=== PATIENT | male | born 1975 | race Caucasian/White ===

== ENCOUNTER 2017-08-06 15:02 | Outpatient (CLI) | payer OTHER ==
[2017-08-06 18:05] LABS: BILIRUBIN,URINE NEGATIVE (NEGATIVE)
[2017-08-06 18:10] LABS: BASOPHILS % (AUTO) 0.7 %; EOSINOPHILS # (AUTO) 0.2 10^3/uL (0.0-0.7); EOSINOPHILS % (AUTO) 3.9 %; HCT - HEMATOCRIT 37.5 % (42.0-52.0); HGB - HEMOGLOBIN 12.6 g/dL (14.0-18.0); LYMPHOCYTES # (AUTO) 1.2 10^3/uL (1.5-3.5); LYMPHOCYTES % (AUTO) 18.1 %; MEAN CORPUSCULAR HGB CONC 33.6 g/dL (32.0-36.0); MEAN CORPUSCULAR VOLUME 89.3 fL (80.0-94.0); MEAN PLATELET VOLUME 8.3 fL (7.4-11.4); MONOCYTES # (AUTO) 0.4 10^3/uL (0.0-1.0); MONOCYTES % (AUTO) 5.8 %; NEUTROPHILS # (AUTO) 4.6 10^3/uL (1.5-6.6); NEUTROPHILS % (AUTO) 71.5 %; UNCORRECTED WHITE BLOOD COUNT 6.4 x10^3/uL; WHITE BLOOD COUNT 6.4 x10^3/uL (4.8-10.8)
[2017-08-06 18:28] LABS: WBC,URINE 0-3 /HPF (0-3)
[2017-08-06 19:06] LABS: ALBUMIN/GLOBULIN RATIO 1.6 (1.0-2.2); BILIRUBIN,TOTAL 0.7 mg/dL (0.2-1.0); BUN - BLOOD UREA NITROGEN 55 mg/dL (6-20); CALCIUM 8.7 mg/dL (8.5-10.3); CARBON DIOXIDE - CO2 26 mmol/L (21-32); CHLORIDE 105 mmol/L (101-111); CHOL/HDL RATIO 4.4 (<5.0); CHOLESTEROL 222 mg/dL; GFR - MDRD 13 (>89); GLUCOSE 95 mg/dL (70-100); HDL CHOLESTEROL 51 mg/dL; LDL/HDL RATIO 2.9 (<3.6); POTASSIUM 4.2 mmol/L (3.5-5.0); SODIUM 138 mmol/L (135-145); TOTAL PROTEIN 6.4 g/dL (6.7-8.2); TRIGLYCERIDES 115 mg/dL; VLDL CHOLESTEROL 23 mg/dL
[2017-08-06 20:34] LABS: HEMOGLOBIN A1C 0.4 g/dL
== END 2017-08-06 15:03 | disposition home or self-care (01) ==
LOC: LAB.F 15:02
PROVIDERS: ATTEND Internal Medicine
DX: I10 Essential (primary) hypertension (principal)
CPT/HCPCS: 36415; 80053; 80061; 81001; 83036; 84443; 85025

== ENCOUNTER 2017-08-07 08:52 | Emergency (ER) | payer OTHER ==
[2017-08-07] MEDS ORDERED: cloNIDine 0.1 MG TABLET PO STA (09:49)
[2017-08-07] MEDS ORDERED: cloNIDine 0.1 MG TABLET ONE (10:00)
[2017-08-07 10:07] LABS: BASOPHILS % (AUTO) 0.6 %; EOSINOPHILS # (AUTO) 0.1 10^3/uL (0.0-0.7); EOSINOPHILS % (AUTO) 1.1 %; HGB - HEMOGLOBIN 12.7 g/dL (14.0-18.0); LYMPHOCYTES # (AUTO) 0.6 10^3/uL (1.5-3.5); MEAN CORPUSCULAR HEMOGLOBIN 30.3 pg (27.0-31.0); MEAN CORPUSCULAR HGB CONC 34.4 g/dL (32.0-36.0); MEAN PLATELET VOLUME 7.3 fL (7.4-11.4); MONOCYTES # (AUTO) 0.3 10^3/uL (0.0-1.0); MONOCYTES % (AUTO) 3.9 %; NEUTROPHILS # (AUTO) 6.7 10^3/uL (1.5-6.6); NEUTROPHILS % (AUTO) 86.4 %; RED CELL DISTRIBUTION WIDTH 13.1 % (12.0-15.0); UNCORRECTED WHITE BLOOD COUNT 7.7 x10^3/uL; WHITE BLOOD COUNT 7.7 x10^3/uL (4.8-10.8)
[2017-08-07 10:23] LABS: ALBUMIN/GLOBULIN RATIO 1.4 (1.0-2.2); BILIRUBIN,TOTAL 0.7 mg/dL (0.2-1.0); CREATININE 4.6 mg/dL (0.6-1.2); POTASSIUM 4.2 mmol/L (3.5-5.0); TOTAL PROTEIN 6.5 g/dL (6.7-8.2)
[2017-08-07 10:34] LABS: BILIRUBIN,URINE NEGATIVE (NEGATIVE); PH,URINE 6.5 PH (5.0-7.5); UA w/ MICROSCOPIC CHARGE YES
[2017-08-07 10:50] LABS: UR CULTURE IF IND NOT INDICATED; WBC,URINE 0-3 /HPF (0-3)
--- NOTE | 2017-08-07 11:17 | ED Physician Documentation ---
History of Present Illness - Stated complaint Stated Complaint: HIGH BP - Chief complaint Chief Complaint: General - History obtained from History obtained from: Patient - History of Present Illness Timing: How many weeks ago, Other (months) - Additonal information Additional information: 42-year-old male has had elevated blood pressure and symptoms including headache and facial swelling leg swelling for the past several months. He became aware of his blood pressure being elevated when he was denied for life insurance. Yesterday he finally went into see a doctor about his blood pressure and he has been running diastolics above 110-120. He was found to have renal failure and he is sent here today for hypertensive urgency. He relates that he has had headaches been bad enough to cause vomiting periodically. He has been monitoring his blood pressures and brings in paperwork with multiple readings all very high. He states that when he exercises he does have some lower readings and he exercises regularly. He also indicates that he is good about his diet but does continue to use salt Review of Systems Constitutional: reports: Chills. denies: Fever Eyes: denies: Decreased vision Ears: denies: Ear pain Nose: denies: Congestion Throat: denies: Sore throat Cardiac: denies: Chest pain / pressure, Palpitations Respiratory: denies: Dyspnea, Cough GI: reports: Nausea, Vomiting. denies: Abdominal Pain : denies: Dysuria, Frequency Skin: denies: Rash Musculoskeletal: reports: Neck pain. denies: Back pain, Extremity pain Neurologic: reports: Headache. denies: Generalized weakness, Focal weakness, Numbness, Head injury, LOC PD PAST MEDICAL HISTORY - Past Medical History Past Medical History: Yes Cardiovascular: Hypertension - Past Surgical History Past Surgical History: No - Present Medications Home Medications: Ambulatory Orders Medication Instructions Recorded Confirmed amLODIPine [Norvasc] 5 mg DAILY 08/07/17 08/07/17 - Allergies Allergies/Adverse Reactions: Allergies Allergy/AdvReac Type Severity Reaction Status Date / Time Penicillins Allergy Unknown Verified 08/07/17 09:05 - Social History Does the pt smoke?: No Smoking Status: Never smoker Does the pt have substance abuse?: No PD ED PE NORMAL - Vitals Vital signs reviewed: Yes (Hypertensive) - General General: Alert and oriented X 3, No acute distress, Well developed/nourished - HEENT HEENT: Atraumatic, PERRL, EOMI - Neck Neck: Supple, no meningeal sign, No bony TTP - Cardiac Cardiac: RRR, No murmur - Respiratory Respiratory: No respiratory distress, Clear bilaterally - Abdomen Abdomen: Soft, Non tender - Back Back: No CVA TTP, No spinal TTP - Derm Derm: Normal color, Warm and dry, No rash - Extremities Extremities: No deformity, Other (There is trace edema bilaterally to the lower extremities.) - Neuro Neuro: Alert and oriented X 3, inspecting supervisor 2-12 intact, No motor deficit, No sensory deficit, Normal speech - Psych Psych: Normal mood, Normal affect Results - Vitals Vitals: Vital Signs - 24 hr 08/07/17 08/07/17 08/07/17 08:55 09:41 10:19 Temperature 36.5 C 36.8 C Heart Rate 67 70 Respiratory 16 11 L Rate Blood Pressure 190/111 H 179/113 H 234/115 H O2 Saturation 100 100 08/07/17 08/07/17 08/07/17 10:20 10:45 11:00 Temperature 36.5 C Heart Rate 68 69 73 Respiratory 15 16 16 Rate Blood Pressure 203/119 H 197/127 H 201/117 H O2 Saturation 100 08/07/17 08/07/17 08/07/17 11:15 11:31 12:42 Temperature 36.9 C 36.5 C Heart Rate 70 73 66 Respiratory 18 14 16 Rate Blood Pressure 187/114 H 187/114 H 177/117 H O2 Saturation 100 100 08/07/17 08/07/17 08/07/17 12:49 13:06 13:21 Temperature Heart Rate 65 59 L 65 Respiratory 16 16 16 Rate Blood Pressure 172/109 H 169/109 H 170/107 H O2 Saturation 100 100 99 08/07/17 08/07/17 08/07/17 13:34 13:50 14:15 Temperature Heart Rate 65 66 65 Respiratory 16 16 16 Rate Blood Pressure 161/101 H 170/110 H 166/102 H O2 Saturation 100 99 100 08/07/17 08/07/17 08/07/17 14:43 14:58 15:12 Temperature Heart Rate 64 64 61 Respiratory 16 18 Rate Blood Pressure 167/104 H 166/105 H 163/109 H O2 Saturation 100 08/07/17 15:21 Temperature Heart Rate 62 Respiratory 16 Rate Blood Pressure 162/104 H O2 Saturation Oxygen O2 Source Room air - EKG (time done) 1001 Intervals: RBBB (incomplete) Compare to prior EKG: Old EKG unavailable Computer interpretation: Agree with computer - Labs Labs: Laboratory Tests 08/07/17 08/07/17 08/07/17 10:00 10:00 10:00 WBC 7.7 RBC 4.20 L Hgb 12.7 L Hct 37.0 L MCV 88.0 MCH 30.3 MCHC 34.4 RDW 13.1 Plt Count 194 MPV 7.3 L Neut # 6.7 H Lymph # 0.6 L Evans # 0.3 Eos # 0.1 Baso # 0.0 Absolute Nucleated RBC 0.00 Nucleated RBC % 0.0 Sodium 140 Potassium 4.2 Chloride 103 Carbon Dioxide 23 Anion Gap 14.0 H BUN 57 H Creatinine 4.6 H Estimated GFR (MDRD) 14 L Glucose 126 H Calcium 9.0 Total Bilirubin 0.7 AST 19 ALT 21 Alkaline Phosphatase 59 Troponin I < 0.04 Total Protein 6.5 L Albumin 3.8 Globulin 2.7 Albumin/Globulin Ratio 1.4 Lipase 28 TSH Urine Color Urine Clarity Urine pH Ur Specific Franklin Urine Protein Urine Glucose (UA) Urine Ketones Urine Occult Blood Urine Nitrite Urine Bilirubin Urine Urobilinogen Ur Leukocyte Esterase Urine RBC Urine WBC Ur Squamous Epith Cells Urine Bacteria Ur Microscopic Review Urine Culture Comments 08/07/17 08/07/17 10:00 10:14 WBC RBC Hgb Hct MCV MCH MCHC RDW Plt Count MPV Neut # Lymph # Evans # Eos # Baso # Absolute Nucleated RBC Nucleated RBC % Sodium Potassium Chloride Carbon Dioxide Anion Gap BUN Creatinine Estimated GFR (MDRD) Glucose Calcium Total Bilirubin AST ALT Alkaline Phosphatase Troponin I Total Protein Albumin Globulin Albumin/Globulin Ratio Lipase TSH 1.85 Urine Color YELLOW Urine Clarity CLEAR Urine pH 6.5 Ur Specific Franklin 1.020 Urine Protein 100 H Urine Glucose (UA) NEGATIVE Urine Ketones NEGATIVE Urine Occult Blood MODERATE H Urine Nitrite NEGATIVE Urine Bilirubin NEGATIVE Urine Urobilinogen 0.2 (NORMAL) Ur Leukocyte Esterase NEGATIVE Urine RBC 11-25 H Urine WBC 0-3 Ur Squamous Epith Cells NONE SEEN Urine Bacteria Rare Ur Microscopic Review INDICATED Urine Culture Comments NOT INDICATED - Rads (name of study) Renal artery ultrasound Radiology: Prelim report reviewed (Impression: Normal renal arteries. No hydro- .), EMP read indepedently, See rad report Procedures - IVC sono (time) 1000 Bedside IVC sono: IVC measures (cm) (1.6), Euvolemia PD MEDICAL DECISION MAKING - ED course Complexity details: reviewed results, re-evaluated patient, considered differential, d/w patient ED course: 42-year-old male with untreated hypertension has symptoms and endorgan damage. He does have evidence now of renal failure and he has a normal renal artery ultrasound.Here in the emergency department he presents markedly hypertensive with a headache leg swelling and renal failure. He brings in paperwork showingSurveillance of elevated blood pressure readings and most of the diastolic readings are over 110. He does have diastolics over 120 and here in the emergency department he is markedly hypertensive. He is administered clonidine orally and subsequently given labetalol inBolus doses with improvement in his blood pressure. Dr. STEPHANIE Titus is consulted in the case and recommends the patient follow up with him in his clinic here at the hospital this Sunday. He recommends continued treatment of his hypertension. Departure - Departure Disposition: Home, Self Care Clinical Impression: Hypertensive urgency Condition: Stable Instructions: ED Hypertension Conf Out Of Control Follow-Up: Codey Bernal MD [Primary Care Provider] - Jhonatan Presley MD [Provider Admit Priv/Credential] - Comments: Increase your dose of amlodipine to 10mg daily, start the Carvedilol 12.5mg twice per day as discussed with Dr. Angel, and follow up with Dr. Presley this Sunday here at the hospital. Call office and ask them to put the referral for nephrology in for "Dr. STEPHANIE Presley"
[2017-08-07] MEDS ORDERED: LABETALOL 20 MG/4 ML SYRINGE IVP STA ×4 (11:34→14:03)
[2017-08-07] MEDS ORDERED: LABETALOL 20 MG/4 ML SYRINGE IVP ONE ×2 (11:47→13:29)
[2017-08-07] MEDS ORDERED: SODIUM CHLORIDE FLUSH 0.9% 10 ML SYRINGE IVP ONE (14:37)
[2017-08-07] MEDS ORDERED: LABETALOL 5 MG/1 ML 20 ML MDV ONE (14:38)
[2017-08-07] MEDS ORDERED: ACETAMINOPHEN 500 MG TABLET PO STA (15:21)
[2017-08-07] MEDS ORDERED: ACETAMINOPHEN 500 MG TABLET PO ONE (15:27)
[2017-08-07 15:52] VITALS: BP 164/100
--- NOTE | 2017-08-07 16:00 | Ultrasound Report ---
RENAL ARTERY DUPLEX: 08/07/2017 CLINICAL INDICATION: Extreme hypertension. TECHNIQUE: Real-time sonographic vascular imaging was performed by the turret press operator through the renal arteries utilizing both color-flow and Doppler flow analysis. Multiple promotional representative static images were saved for review. RT KIDNEY LT KIDNEY Size: 11.2 x 5.6 x 5.5 cm Size: 11.8 x 5.7 x 5.6 cm SEGMENTAL ARTERY SEGMENTAL ARTERY PSV RI PSV RI Upper Pole 56 0.6 Upper Pole 57 0.63 Mid Pole 63 0.73 Mid Pole 77 0.7 Lower Pole 30 0.63 Lower Pole 56 0.7 RIGHT RENAL ARTERY LEFT RENAL ARTERY PSV RA/AO PSV RA/AO Origin: 125 0.9 Origin: 90 0.7 Proximal: 80 0.6 Proximal: 90 0.7 Mid: 68 0.5 Mid: 132 1 Distal: 83 0.6 Distal: 78 0.6 PROX AORTA PSV: 137 cm/sec RRV patent Yes LRV patent Yes CRITERIA FOR CLASSIFICATION OF RENAL ARTERY DISEASE BY DUPLEX SCANNING RENAL ARTERY DIAMETER REDUCTION RENAL ARTERY PSV RAR Normal < 180 cm/sec <3.5 < 60 % >180 cm/sec <3.5 < 60 % >180 cm/sec <3.5 Occlusion (100)% No signal No signal FINDINGS Right: Right kidney measures 11.2 x 5.6 x 5.5 cm. Renal cortical echotexture is increased, suggestive of medical renal disease. The right renal artery is well visualized around its length. Velocities and ratios are normal. Resistive indices are normal. No hydronephrosis is present. Left: The left kidney measures 11.8 x 5.7 x 5.6 cm. Renal cortical echotexture is increased, suggestive of medical renal disease. The left renal artery is well seen throughout its length. Velocities and ratios are normal. Resistive indices are normal. No hydronephrosis is present. IMPRESSION: NORMAL RENAL ARTERY DUPLEX. NO EVIDENCE OF A HEMODYNAMICALLY SIGNIFICANT RENAL ARTERY STENOSIS. MTDD
== END 2017-08-07 15:59 | disposition home or self-care (01) ==
LOC: ED 08:52
DX: I16.0 Hypertensive urgency (principal); I45.2 Bifascicular block; R94.31 Abnormal electrocardiogram [ECG] [EKG]
CPT/HCPCS: 36415; 80053; 81001; 83690; 84443; 84484; 85025; 93005; 93976; 96374; 96376; 99285; A9270; 81003; 87086

== ENCOUNTER 2017-08-13 08:54 | Outpatient (CLI) | payer OTHER ==
[2017-08-13 13:42] LABS: INR 0.9 (0.8-1.2); PT - PROTHROMBIN TIME 10.1 secs (9.9-12.6)
[2017-08-13 14:03] LABS: CALCIUM 8.9 mg/dL (8.5-10.3); CREATININE 5.5 mg/dL (0.6-1.2); PHOSPHORUS 5.3 mg/dL (2.5-4.6); POTASSIUM 4.5 mmol/L (3.5-5.0); URIC ACID 7.3 mg/dL (2.6-7.2)
[2017-08-15 10:51] LABS: GLOM BASEMENT MEMBRANE AB IGG <1.0 AI (<1.0)
[2017-08-15 11:56] LABS: COMPLEMENT COMPONENT C3C 104 mg/dL (90-180); COMPLEMENT COMPONENT C4C 28 mg/dL (16-47)
[2017-08-15 13:21] LABS: ANA SCREEN NEGATIVE (NEGATIVE)
== END 2017-08-13 08:55 | disposition home or self-care (01) ==
LOC: LAB.F 08:54
PROVIDERS: ATTEND Internal Medicine Nephrology
DX: L93.2 Other local lupus erythematosus (principal); M31.30 Wegener's granulomatosis without renal involvement; N00.9 Acute nephritic syndrome with unspecified morphologic changes; N05.9 Unspecified nephritic syndrome with unspecified morphologic changes; D89.89 Other specified disorders involving the immune mechanism, not elsewhere classified; M10.00 Idiopathic gout, unspecified site; E83.30 Disorder of phosphorus metabolism, unspecified; D70.9 Neutropenia, unspecified; D68.9 Coagulation defect, unspecified; N25.81 Secondary hyperparathyroidism of renal origin
CPT/HCPCS: 36415; 80048; 83520; 83970; 84100; 84550; 85610; 86021; 86038; 86160

== ENCOUNTER 2017-08-14 12:59 | Outpatient (CLI) | payer OTHER | END 2017-08-14 13:00 | disposition home or self-care (01) | LOC: LAB.F 12:59 | PROVIDERS: ATTEND Internal Medicine Nephrology | DX: L93.2 Other local lupus erythematosus (principal); M31.30 Wegener's granulomatosis without renal involvement; N00.9 Acute nephritic syndrome with unspecified morphologic changes; D89.89 Other specified disorders involving the immune mechanism, not elsewhere classified; M10.00 Idiopathic gout, unspecified site; E83.30 Disorder of phosphorus metabolism, unspecified; N25.81 Secondary hyperparathyroidism of renal origin; D68.9 Coagulation defect, unspecified; D70.9 Neutropenia, unspecified | CPT/HCPCS: 36415; 86900; 86901 ==

== ENCOUNTER 2017-08-21 10:27 | Outpatient (CLI) | payer OTHER ==
[2017-08-21 18:29] LABS: BILIRUBIN,URINE NEGATIVE (NEGATIVE)
[2017-08-21 18:40] LABS: WBC,URINE 0-3 /HPF (0-3)
[2017-08-21 19:11] LABS: CREATININE 5.3 mg/dL (0.6-1.2); POTASSIUM 4.1 mmol/L (3.5-5.0)
== END 2017-08-21 10:28 | disposition home or self-care (01) ==
LOC: LAB.F 10:27
PROVIDERS: ATTEND Internal Medicine
DX: I10 Essential (primary) hypertension (principal); N17.9 Acute kidney failure, unspecified
CPT/HCPCS: 36415; 80048; 81001

== ENCOUNTER 2017-09-20 11:00 | Outpatient (CLI) | payer OTHER | END 2017-09-20 11:01 | disposition home or self-care (01) | LOC: NS 11:00 | PROVIDERS: ATTEND Internal Medicine Nephrology | DX: Z71.3 Dietary counseling and surveillance (principal); N17.9 Acute kidney failure, unspecified; Z68.26 Body mass index [BMI] 26.0-26.9, adult | CPT/HCPCS: 97803 ==

== ENCOUNTER 2017-10-13 14:42 | Emergency (ER) | payer OTHER ==
--- NOTE | 2017-10-13 16:16 | ED Physician Documentation ---
History of Present Illness - Stated complaint Stated Complaint: NECK PX - Chief complaint Chief Complaint: Heent - History obtained from History obtained from: Patient, Family - History of Present Illness Timing: Today Pain level max: 2 Pain level now: 2 - Additonal information Additional information: Patient is a 42-year-old gentleman with a history of hypertension and chronic kidney disease secondary to IgA nephropathy. He complains of right-sided neck pain a little bit yesterday and worse today. Feels like it is over his carotid artery. No visual changes. No facial drooping. Pain is worse when he tilts his head to the left, but not with rotational movement. Denies any trauma. Pain is better when sitting straight ahead. Review of Systems Ten Systems: 10 systems reviewed and negative Constitutional: denies: Fever, Chills Ears: denies: Ear pain Nose: denies: Rhinorrhea / runny nose, Congestion Throat: denies: Sore throat Cardiac: denies: Chest pain / pressure Respiratory: denies: Cough GI: denies: Nausea, Vomiting, Diarrhea Skin: denies: Rash Musculoskeletal: denies: Back pain Neurologic: denies: Focal weakness, Numbness, Confused, Headache PD PAST MEDICAL HISTORY - Past Medical History Cardiovascular: Hypertension : Renal insuffiency - Past Surgical History Past Surgical History: No - Present Medications Home Medications: Ambulatory Orders Medication Instructions Recorded Confirmed amLODIPine [Norvasc] 5 mg ORAL DAILY 08/07/17 10/13/17 Carvedilol 12.5 mg PO DAILY 10/13/17 10/13/17 Doxazosin [Cardura] 4 mg PO DAILY 10/13/17 10/13/17 Torsemide 20 mg PO DAILY 10/13/17 10/13/17 amLODIPine [Norvasc] 5 mg PO ONCE 10/13/17 10/13/17 hydrALAZINE [Apresoline] 25 mg PO QD 10/13/17 10/13/17 - Allergies Allergies/Adverse Reactions: Allergies Allergy/AdvReac Type Severity Reaction Status Date / Time Penicillins Allergy Unknown Verified 10/13/17 14:58 - Social History Does the pt smoke?: No Smoking Status: Never smoker Does the pt drink ETOH?: Yes Does the pt have substance abuse?: No - Immunizations Immunizations are current?: No - POLST Patient has POLST: No PD ED PE NORMAL - Vitals Vital signs reviewed: Yes - General General: Alert and oriented X 3, No acute distress - HEENT HEENT: PERRL, EOMI, Ears normal, Moist mucous membranes, Pharynx benign - Neck Neck: Supple, no meningeal sign, No bony TTP, No adenopathy, Thyroid normal, No JVD, No bruit, Other (mild point TTP over the R anterior cervical chain lymphnodes. no appreciable swelling. ) - Cardiac Cardiac: RRR, Strong equal pulses - Respiratory Respiratory: No respiratory distress, Clear bilaterally - Derm Derm: Warm and dry - Neuro Neuro: Alert and oriented X 3, equipment service technician 2-12 intact, No motor deficit, No sensory deficit Eye Opening: Spontaneous Motor: Obeys Commands Verbal: Oriented GCS Score: 15 - Psych Psych: Normal mood, Normal affect Results - Vitals Vitals: Vital Signs - 24 hr 10/13/17 10/13/17 14:53 17:20 Temperature 36.7 C 36.3 C L Heart Rate 55 L 52 L Respiratory 16 18 Rate Blood Pressure 121/76 139/94 H O2 Saturation 100 98 Oxygen O2 Source Room air - Labs Labs: Laboratory Tests 10/13/17 10/13/17 10/13/17 16:23 16:23 16:23 WBC 5.9 RBC 3.54 L Hgb 10.9 L Hct 31.5 L MCV 89.0 MCH 30.7 MCHC 34.5 RDW 12.6 Plt Count 223 MPV 7.4 Neut # 4.0 Lymph # 1.2 L [place] # 0.5 Eos # 0.2 Baso # 0.0 Absolute Nucleated RBC 0.00 Nucleated RBC % 0.0 ESR 28 H Sodium 136 Potassium 3.9 Chloride 100 L Carbon Dioxide 28 Anion Gap 8.0 BUN 43 H Creatinine 4.7 H Estimated GFR (MDRD) 14 L Glucose 109 H Calcium 9.0 C-Reactive Protein < 1.0 - Rads (name of study) carotid duplex US Radiology: Prelim report reviewed, EMP read contemporaneously, See rad report ( normal) PD MEDICAL DECISION MAKING - ED course Complexity details: reviewed results, re-evaluated patient, considered differential (No evidence of dissection, aneurysm, vasculitis), d/w patient ED course: Patient is a 42-year-old male who presents to the emergency department with right-sided neck pain. He is point tender. Possibly early lymphadenitis? No overlying skin changes. Normal duplex ultrasound. CRP is negative. He is well -appearing, nontoxic. No bruit. Normal cranial nerve exam. We will continue supportive care and follow-up with his doctor for further evaluation and care. Patient and family counseled regarding signs and symptoms for which I believe and urgent re-evaluation would be necessary. Patient with good understanding of and agreement to plan and is comfortable going home at this time This document was made in part using voice recognition software. While efforts are made to proofread this document, sound alike and grammatical errors may occur. Departure - Departure Disposition: 01 Home, Self Care Clinical Impression: Neck pain Condition: Good Instructions: ED Neck Pain No Trauma Follow-Up: Jhonatan Presley MD [Provider Admit Priv/Credential] - Within 1 week Comments: Return if you worsen. the cause of your symptoms is unclear today. Your ultrasound is normal today. Discharge Date/Time: 10/13/17 17:58
[2017-10-13 16:34] LABS: BASOPHILS % (AUTO) 0.8 %; EOSINOPHILS # (AUTO) 0.2 10^3/uL (0.0-0.7); HCT - HEMATOCRIT 31.5 % (42.0-52.0); HGB - HEMOGLOBIN 10.9 g/dL (14.0-18.0); LYMPHOCYTES # (AUTO) 1.2 10^3/uL (1.5-3.5); MEAN CORPUSCULAR HEMOGLOBIN 30.7 pg (27.0-31.0); MEAN CORPUSCULAR HGB CONC 34.5 g/dL (32.0-36.0); MEAN PLATELET VOLUME 7.4 fL (7.4-11.4); MONOCYTES # (AUTO) 0.5 10^3/uL (0.0-1.0); MONOCYTES % (AUTO) 8.6 %; NEUTROPHILS % (AUTO) 67.6 %; RED BLOOD COUNT 3.54 10^6/uL (4.70-6.10); RED CELL DISTRIBUTION WIDTH 12.6 % (12.0-15.0); UNCORRECTED WHITE BLOOD COUNT 5.9 x10^3/uL; WHITE BLOOD COUNT 5.9 x10^3/uL (4.8-10.8)
[2017-10-13 16:50] LABS: BUN - BLOOD UREA NITROGEN 43 mg/dL (6-20); CARBON DIOXIDE - CO2 28 mmol/L (21-32); CHLORIDE 100 mmol/L (101-111); CREATININE 4.7 mg/dL (0.6-1.2); GFR - MDRD 14 (>89); GLUCOSE 109 mg/dL (70-100); POTASSIUM 3.9 mmol/L (3.5-5.0); SODIUM 136 mmol/L (135-145)
[2017-10-13 17:24] VITALS: BP 139/94
--- NOTE | 2017-10-13 17:26 | Ultrasound Preliminary Report ---
Exam: US CAROTID DOPPLER COMPLETE IMPRESSION: 1. Normal bilateral internal carotid artery Doppler ultrasound. No stenosis identified. 2. Antegrade flow seen in the bilateral vertebral arteries. Validated velocity measurements with angiographic measurements and velocity criteria are extrapolated from diameter data as defined by the Society of Radiologists in Ultrasound Consensus Conference Radi ology 2003; 229;340-346. [facility] SITE ID: [id number]
--- NOTE | 2017-10-13 17:40 | Ultrasound Report ---
EXAM: CAROTID DOPPLER ULTRASOUND EXAM DATE: 10/13/2017 05:09 PM. CLINICAL HISTORY: Right neck pain. COMPARISON: None. TECHNIQUE: Real-time sonographic vascular imaging was performed by the business planning analyst through the caroti d arterial system with a linear transducer utilizing color-flow, Doppler flow and spectral analysis. Multiple care support representative static images were saved for review. FINDINGS: RIGHT: RCCA Prox: PSV 124 cm/sec. RCCA Dist: PSV 100 cm/sec, EDV 30 cm/sec. RECA: PSV 79 cm/sec. R Bulb: PSV 84 cm/sec, EDV 31 cm/sec, ICA/CCA ratio 0.84. JOSHUA Prox: PSV 72 cm/sec, EDV 32 cm/sec, ICA/CCA ratio 0.72. JOSHUA Mid: PSV 66 cm/sec, EDV 36 cm/sec, ICA/CCA ratio 0.66. JOSHUA Dist: PSV 97 cm/sec, EDV 40 cm/sec, ICA/CCA ratio 0.97. RVA: PSV 58 cm/sec. LEFT: LCCA Prox: PSV 116 cm/sec. LCCA Dist: PSV 97 cm/sec, EDV 39 cm/sec. LECA: PSV 78 cm/sec. L Bulb: PSV 58 cm/sec, EDV 23 cm/sec, ICA/CCA ratio 0.60. LICA Prox: PSV 96 cm/sec, EDV 35 cm/sec, ICA/CCA ratio 0.99. LICA Mid: PSV 66 cm/sec, EDV 29 cm/sec, ICA/CCA ratio 0.68., LICA Dist: PSV 67 cm/sec, EDV 31 cm/sec, ICA/CCA ratio 0.69. LVA: PSV 48 cm/sec. Other: None. IMPRESSION: 1. Normal bilateral internal carotid artery Doppler ultrasound. No stenosis identified. 2. Antegrade flow seen in the bilateral vertebral arteries. Validated velocity measurements with angiographic measurements and velocity criteria are extrapolated from diameter data as defined by the Society of Radiologists in Ultrasound Consensus Conference Radi ology 2003; 229;340-346. [facility] Referring Provider Line: [phone] SITE ID: [id number]
== END 2017-10-13 17:58 | disposition home or self-care (01) ==
LOC: ED 14:42
DX: M54.2 Cervicalgia (principal); I12.9 Hypertensive chronic kidney disease with stage 1 through stage 4 chronic kidney disease, or unspecified chronic kidney disease; N18.9 Chronic kidney disease, unspecified
CPT/HCPCS: 36415; 80048; 85025; 85651; 86140; 93880; 99283

== ENCOUNTER 2017-12-17 09:13 | Outpatient (CLI) | payer OTHER ==
[2017-12-17 18:06] LABS: EOSINOPHILS # (AUTO) 0.1 10^3/uL (0.0-0.7); EOSINOPHILS % (AUTO) 2.6 %; HGB - HEMOGLOBIN 11.6 g/dL (14.0-18.0); LYMPHOCYTES % (AUTO) 21.6 %; MEAN CORPUSCULAR HGB CONC 33.6 g/dL (32.0-36.0); MEAN CORPUSCULAR VOLUME 89.5 fL (80.0-94.0); MEAN PLATELET VOLUME 8.1 fL (7.4-11.4); MONOCYTES # (AUTO) 0.4 10^3/uL (0.0-1.0); MONOCYTES % (AUTO) 8.8 %; PLT - PLATELET COUNT 230 10^3/uL (130-450); RED BLOOD COUNT 3.85 10^6/uL (4.70-6.10); RED CELL DISTRIBUTION WIDTH 12.3 % (12.0-15.0); WHITE BLOOD COUNT 4.5 x10^3/uL (4.8-10.8)
[2017-12-17 18:19] LABS: CREATININE,URINE 53.3 mg/dL; PROTEIN/CREATININE RATIO,URINE 0.4 (<=0.2)
[2017-12-17 18:20] LABS: CALCIUM 8.8 mg/dL (8.5-10.3)
== END 2017-12-17 09:14 | disposition home or self-care (01) ==
LOC: LAB.F 09:13
PROVIDERS: ATTEND Internal Medicine Nephrology
DX: N05.9 Unspecified nephritic syndrome with unspecified morphologic changes (principal); D70.9 Neutropenia, unspecified; D63.1 Anemia in chronic kidney disease; R80.9 Proteinuria, unspecified
CPT/HCPCS: 36415; 80048; 82570; 84156; 85025

== ENCOUNTER 2017-12-25 13:00 | Outpatient (CLI) | payer OTHER | END 2017-12-25 13:01 | disposition home or self-care (01) | LOC: SC 13:00 | PROVIDERS: ATTEND Internal Medicine Pulmonary Disease | DX: G47.10 Hypersomnia, unspecified (principal); G47.8 Other sleep disorders; R06.83 Snoring | CPT/HCPCS: 99203; 99212 ==

== ENCOUNTER 2018-02-06 22:11 | Outpatient (CLI) | payer OTHER | END 2018-02-06 22:12 | disposition home or self-care (01) | LOC: SC 22:11 | PROVIDERS: ATTEND Internal Medicine Pulmonary Disease | DX: G47.61 Periodic limb movement disorder (principal) | CPT/HCPCS: 95810 ==

== ENCOUNTER 2018-02-18 13:04 | Outpatient (CLI) | payer OTHER ==
[2018-02-18 19:08] LABS: CALCIUM 8.8 mg/dL (8.5-10.3); CREATININE 4.8 mg/dL (0.6-1.2)
== END 2018-02-18 13:05 | disposition home or self-care (01) ==
LOC: LAB.F 13:04
PROVIDERS: ATTEND Internal Medicine Nephrology
DX: N05.9 Unspecified nephritic syndrome with unspecified morphologic changes (principal)
CPT/HCPCS: 36415; 80048

== ENCOUNTER 2018-03-04 14:08 | Outpatient (CLI) | payer OTHER | END 2018-03-04 14:09 | disposition home or self-care (01) | LOC: SC 14:08 | PROVIDERS: ATTEND Internal Medicine Pulmonary Disease | DX: G47.61 Periodic limb movement disorder (principal) | CPT/HCPCS: 99212 ==

== ENCOUNTER 2018-04-04 12:11 | Outpatient (CLI) | payer OTHER ==
[2018-04-04 17:46] LABS: HGB - HEMOGLOBIN 11.6 g/dL (14.0-18.0); MEAN CORPUSCULAR HEMOGLOBIN 29.7 pg (27.0-31.0); MEAN CORPUSCULAR HGB CONC 33.5 g/dL (32.0-36.0); MEAN CORPUSCULAR VOLUME 88.6 fL (80.0-94.0); RED BLOOD COUNT 3.9 10^6/uL (4.70-6.10); WHITE BLOOD COUNT 5.2 x10^3/uL (4.8-10.8)
== END 2018-04-04 12:12 | disposition home or self-care (01) ==
LOC: LAB.F 12:11
PROVIDERS: ATTEND Internal Medicine Nephrology
DX: D70.9 Neutropenia, unspecified (principal); D63.1 Anemia in chronic kidney disease
CPT/HCPCS: 36415; 85027

== ENCOUNTER 2018-05-15 13:13 | Outpatient (CLI) | payer SELFPAY | END 2018-05-15 13:14 | disposition home or self-care (01) | LOC: LAB 13:13 | DX: Z01.89 Encounter for other specified special examinations (principal) | CPT/HCPCS: 36415 ==

== ENCOUNTER 2018-08-01 08:02 | Outpatient (CLI) | payer OTHER ==
[2018-08-01 17:45] LABS: BASOPHILS % (AUTO) 0.5 %; EOSINOPHILS # (AUTO) 0.1 10^3/uL (0.0-0.7); EOSINOPHILS % (AUTO) 1.1 %; HGB - HEMOGLOBIN 13.5 g/dL (14.0-18.0); LYMPHOCYTES # (AUTO) 0.3 10^3/uL (1.5-3.5); LYMPHOCYTES % (AUTO) 6.3 %; MEAN CORPUSCULAR HGB CONC 34.1 g/dL (32.0-36.0); MEAN CORPUSCULAR VOLUME 90.9 fL (80.0-94.0); MEAN PLATELET VOLUME 7.7 fL (7.4-11.4); MONOCYTES # (AUTO) 0.3 10^3/uL (0.0-1.0); MONOCYTES % (AUTO) 5.8 %; NEUTROPHILS # (AUTO) 4.1 10^3/uL (1.5-6.6); NEUTROPHILS % (AUTO) 86.3 %; PLT - PLATELET COUNT 275 10^3/uL (130-450); RED BLOOD COUNT 4.37 10^6/uL (4.70-6.10); RED CELL DISTRIBUTION WIDTH 16.2 % (12.0-15.0); WHITE BLOOD COUNT 4.7 x10^3/uL (4.8-10.8)
[2018-08-01 18:17] LABS: CALCIUM 9.5 mg/dL (8.5-10.3); CREATININE 1.9 mg/dL (0.6-1.2); MAGNESIUM 1.9 mg/dL (1.7-2.8); PHOSPHORUS 3.1 mg/dL (2.5-4.6)
[2018-08-03 01:32] LABS: CMV DNA QN RT PCR <200 IU/mL; SOURCE BLOOD
== END 2018-08-01 08:03 | disposition home or self-care (01) ==
LOC: LAB.F 08:02
PROVIDERS: ATTEND Nurse Practitioner Acute Care
DX: T86.10 Unspecified complication of kidney transplant (principal); Z94.0 Kidney transplant status; Z51.81 Encounter for therapeutic drug level monitoring; Z79.899 Other long term (current) drug therapy
CPT/HCPCS: 36415; 80048; 80197; 83735; 83970; 84100; 85025; 87497

== ENCOUNTER 2018-08-09 07:07 | Outpatient (CLI) | payer OTHER ==
[2018-08-09 17:45] LABS: BASOPHILS % (AUTO) 0.8 %; EOSINOPHILS % (AUTO) 0.8 %; HGB - HEMOGLOBIN 13.7 g/dL (14.0-18.0); LYMPHOCYTES # (AUTO) 0.3 10^3/uL (1.5-3.5); LYMPHOCYTES % (AUTO) 5.9 %; MEAN CORPUSCULAR HEMOGLOBIN 30.8 pg (27.0-31.0); MEAN CORPUSCULAR HGB CONC 33.7 g/dL (32.0-36.0); MEAN CORPUSCULAR VOLUME 91.5 fL (80.0-94.0); MEAN PLATELET VOLUME 7.7 fL (7.4-11.4); MONOCYTES # (AUTO) 0.3 10^3/uL (0.0-1.0); MONOCYTES % (AUTO) 7.3 %; NEUTROPHILS # (AUTO) 3.9 10^3/uL (1.5-6.6); NEUTROPHILS % (AUTO) 85.2 %; PLT - PLATELET COUNT 254 10^3/uL (130-450); RED BLOOD COUNT 4.44 10^6/uL (4.70-6.10); RED CELL DISTRIBUTION WIDTH 15.7 % (12.0-15.0); WHITE BLOOD COUNT 4.6 x10^3/uL (4.8-10.8)
[2018-08-09 18:13] LABS: CALCIUM 9.1 mg/dL (8.5-10.3); CREATININE 1.6 mg/dL (0.6-1.2); MAGNESIUM 1.9 mg/dL (1.7-2.8); PHOSPHORUS 2.4 mg/dL (2.5-4.6)
[2018-08-09 18:26] LABS: BILIRUBIN,URINE NEGATIVE (NEGATIVE); GLUCOSE, URINE (UA) NEGATIVE (NEGATIVE); KETONES,URINE (UA) NEGATIVE (NEGATIVE); LEUKOCYTE ESTERASE, URINE NEGATIVE (NEGATIVE); NITRITE,URINE NEGATIVE (NEGATIVE); OCCULT BLOOD,URINE NEGATIVE (NEGATIVE); PH,URINE 5.5 PH (5.0-7.5); PROTEIN,URINE NEGATIVE (NEGATIVE); UROBILINOGEN,URINE 0.2 (NORMAL) E.U./dL (NORMAL)
[2018-08-09 18:33] LABS: CLARITY,URINE CLEAR (CLEAR)
[2018-08-09 19:32] LABS: CREATININE,URINE 24.2 mg/dL
[2018-08-09 19:33] LABS: TOTAL PROTEIN,URINE TIMED < 6 mg/dL
== END 2018-08-09 07:08 | disposition home or self-care (01) ==
LOC: LAB.F 07:07
PROVIDERS: ATTEND Nurse Practitioner Acute Care
DX: Z51.81 Encounter for therapeutic drug level monitoring (principal); T86.10 Unspecified complication of kidney transplant
CPT/HCPCS: 36415; 80048; 80197; 81001; 81003; 82570; 83735; 84100; 84156; 85025; 87086

== ENCOUNTER 2018-08-22 08:21 | Outpatient (CLI) | payer OTHER ==
[2018-08-22 10:47] LABS: BILIRUBIN,URINE NEGATIVE (NEGATIVE); GLUCOSE, URINE (UA) NEGATIVE (NEGATIVE); KETONES,URINE (UA) NEGATIVE (NEGATIVE); LEUKOCYTE ESTERASE, URINE NEGATIVE (NEGATIVE); NITRITE,URINE NEGATIVE (NEGATIVE); OCCULT BLOOD,URINE NEGATIVE (NEGATIVE); PH,URINE 6.5 PH (5.0-7.5); PROTEIN,URINE NEGATIVE (NEGATIVE); UROBILINOGEN,URINE 0.2 (NORMAL) E.U./dL (NORMAL)
[2018-08-22 10:48] LABS: BASOPHILS % (AUTO) 0.6 %; CLARITY,URINE CLEAR (CLEAR); EOSINOPHILS % (AUTO) 0.7 %; HGB - HEMOGLOBIN 14.4 g/dL (14.0-18.0); LYMPHOCYTES # (AUTO) 0.3 10^3/uL (1.5-3.5); LYMPHOCYTES % (AUTO) 6.7 %; MEAN CORPUSCULAR VOLUME 91.3 fL (80.0-94.0); MEAN PLATELET VOLUME 7.8 fL (7.4-11.4); MONOCYTES # (AUTO) 0.3 10^3/uL (0.0-1.0); MONOCYTES % (AUTO) 6.3 %; NEUTROPHILS # (AUTO) 3.9 10^3/uL (1.5-6.6); NEUTROPHILS % (AUTO) 85.7 %; PLT - PLATELET COUNT 259 10^3/uL (130-450); RED BLOOD COUNT 4.64 10^6/uL (4.70-6.10); RED CELL DISTRIBUTION WIDTH 14.9 % (12.0-15.0); WHITE BLOOD COUNT 4.6 x10^3/uL (4.8-10.8)
[2018-08-22 10:49] LABS: CALCIUM 9.4 mg/dL (8.5-10.3); CREATININE 1.7 mg/dL (0.6-1.2); PHOSPHORUS 3.1 mg/dL (2.5-4.6)
[2018-08-22 11:08] LABS: CREATININE,URINE 36.4 mg/dL
[2018-08-22 11:12] LABS: TOTAL PROTEIN,URINE TIMED < 6 mg/dL
== END 2018-08-22 08:22 | disposition home or self-care (01) ==
LOC: LAB.F 08:21
PROVIDERS: ATTEND Nurse Practitioner Acute Care
DX: Z94.0 Kidney transplant status (principal); Z51.81 Encounter for therapeutic drug level monitoring; T86.10 Unspecified complication of kidney transplant
CPT/HCPCS: 36415; 80048; 80197; 81001; 81003; 82570; 83735; 84100; 84156; 85025; 87086; 87497

== ENCOUNTER 2018-09-09 12:48 | Outpatient (CLI) | payer OTHER ==
[2018-09-09 18:06] LABS: BILIRUBIN,URINE NEGATIVE (NEGATIVE); GLUCOSE, URINE (UA) NEGATIVE (NEGATIVE); KETONES,URINE (UA) NEGATIVE (NEGATIVE); LEUKOCYTE ESTERASE, URINE NEGATIVE (NEGATIVE); NITRITE,URINE NEGATIVE (NEGATIVE); OCCULT BLOOD,URINE NEGATIVE (NEGATIVE); PROTEIN,URINE NEGATIVE (NEGATIVE); UROBILINOGEN,URINE 0.2 (NORMAL) E.U./dL (NORMAL)
[2018-09-09 18:18] LABS: BASOPHILS % (AUTO) 0.6 %; EOSINOPHILS % (AUTO) 0.2 %; HGB - HEMOGLOBIN 14.3 g/dL (14.0-18.0); LYMPHOCYTES # (AUTO) 0.3 10^3/uL (1.5-3.5); LYMPHOCYTES % (AUTO) 4.3 %; MEAN CORPUSCULAR HEMOGLOBIN 30.7 pg (27.0-31.0); MEAN CORPUSCULAR HGB CONC 33.4 g/dL (32.0-36.0); MEAN CORPUSCULAR VOLUME 91.9 fL (80.0-94.0); MONOCYTES # (AUTO) 0.3 10^3/uL (0.0-1.0); MONOCYTES % (AUTO) 4.7 %; NEUTROPHILS # (AUTO) 5.4 10^3/uL (1.5-6.6); NEUTROPHILS % (AUTO) 90.2 %; PLT - PLATELET COUNT 243 10^3/uL (130-450); RED BLOOD COUNT 4.65 10^6/uL (4.70-6.10); RED CELL DISTRIBUTION WIDTH 13.7 % (12.0-15.0)
[2018-09-09 18:24] LABS: CLARITY,URINE CLEAR (CLEAR)
[2018-09-09 18:58] LABS: CALCIUM 8.9 mg/dL (8.5-10.3); CREATININE 1.6 mg/dL (0.6-1.2); PHOSPHORUS 2.6 mg/dL (2.5-4.6)
[2018-09-09 18:59] LABS: CREATININE,URINE 22.9 mg/dL
[2018-09-09 19:00] LABS: TOTAL PROTEIN,URINE TIMED < 6 mg/dL
== END 2018-09-09 12:49 | disposition home or self-care (01) ==
LOC: LAB.F 12:48
PROVIDERS: ATTEND Nurse Practitioner Acute Care
DX: Z94.0 Kidney transplant status (principal); Z51.81 Encounter for therapeutic drug level monitoring; T86.10 Unspecified complication of kidney transplant
CPT/HCPCS: 36415; 80048; 80197; 81001; 81003; 82570; 83735; 84100; 84156; 85025; 87086

== ENCOUNTER 2018-09-23 13:59 | Outpatient (CLI) | payer OTHER ==
[2018-09-23 18:18] LABS: BASOPHILS % (AUTO) 0.6 %; EOSINOPHILS % (AUTO) 0.4 %; HGB - HEMOGLOBIN 14.1 g/dL (14.0-18.0); LYMPHOCYTES # (AUTO) 0.3 10^3/uL (1.5-3.5); LYMPHOCYTES % (AUTO) 6.5 %; MEAN CORPUSCULAR HEMOGLOBIN 30.5 pg (27.0-31.0); MEAN CORPUSCULAR HGB CONC 32.8 g/dL (32.0-36.0); MEAN PLATELET VOLUME 8.2 fL (7.4-11.4); MONOCYTES # (AUTO) 0.3 10^3/uL (0.0-1.0); MONOCYTES % (AUTO) 5.3 %; NEUTROPHILS # (AUTO) 4.2 10^3/uL (1.5-6.6); NEUTROPHILS % (AUTO) 87.2 %; PLT - PLATELET COUNT 238 10^3/uL (130-450); RED BLOOD COUNT 4.63 10^6/uL (4.70-6.10); RED CELL DISTRIBUTION WIDTH 13.3 % (12.0-15.0); WHITE BLOOD COUNT 4.8 x10^3/uL (4.8-10.8)
[2018-09-23 18:36] LABS: CREATININE 1.6 mg/dL (0.6-1.2)
== END 2018-09-23 14:00 | disposition home or self-care (01) ==
LOC: LAB.F 13:59
PROVIDERS: ATTEND Internal Medicine Nephrology
DX: N05.9 Unspecified nephritic syndrome with unspecified morphologic changes (principal); D70.9 Neutropenia, unspecified; T86.10 Unspecified complication of kidney transplant; D63.1 Anemia in chronic kidney disease
CPT/HCPCS: 36415; 80048; 80197; 85025

== ENCOUNTER 2018-10-07 07:15 | Outpatient (CLI) | payer OTHER ==
[2018-10-07 11:04] LABS: CALCIUM 9.1 mg/dL (8.5-10.3); CREATININE 1.7 mg/dL (0.6-1.2)
[2018-10-07 11:48] LABS: BASOPHILS % (AUTO) 0.5 %; EOSINOPHILS % (AUTO) 1.4 %; LYMPHOCYTES # (AUTO) 0.2 10^3/uL (1.5-3.5); LYMPHOCYTES % (AUTO) 6.7 %; MEAN CORPUSCULAR HEMOGLOBIN 30.6 pg (27.0-31.0); MEAN CORPUSCULAR HGB CONC 33.6 g/dL (32.0-36.0); MEAN CORPUSCULAR VOLUME 91.2 fL (80.0-94.0); MEAN PLATELET VOLUME 7.9 fL (7.4-11.4); MONOCYTES # (AUTO) 0.3 10^3/uL (0.0-1.0); MONOCYTES % (AUTO) 9.1 %; NEUTROPHILS # (AUTO) 2.9 10^3/uL (1.5-6.6); NEUTROPHILS % (AUTO) 82.3 %; PLT - PLATELET COUNT 211 10^3/uL (130-450); RED BLOOD COUNT 4.88 10^6/uL (4.70-6.10); RED CELL DISTRIBUTION WIDTH 13.1 % (12.0-15.0); WHITE BLOOD COUNT 3.6 x10^3/uL (4.8-10.8)
== END 2018-10-07 07:16 | disposition home or self-care (01) ==
LOC: LAB.F 07:15
PROVIDERS: ATTEND Nurse Practitioner Acute Care
DX: Z94.0 Kidney transplant status (principal); Z51.81 Encounter for therapeutic drug level monitoring; T86.10 Unspecified complication of kidney transplant; N05.9 Unspecified nephritic syndrome with unspecified morphologic changes; D70.9 Neutropenia, unspecified; D63.1 Anemia in chronic kidney disease
CPT/HCPCS: 36415; 80048; 80197; 81001; 81003; 82570; 83735; 84100; 84156; 85025; 87086

== ENCOUNTER 2018-10-21 07:38 | Outpatient (CLI) | payer OTHER ==
[2018-10-21 11:06] LABS: BASOPHILS % (AUTO) 0.6 %; CREATININE 1.7 mg/dL (0.6-1.2); EOSINOPHILS % (AUTO) 1.1 %; HGB - HEMOGLOBIN 15.5 g/dL (14.0-18.0); LYMPHOCYTES # (AUTO) 0.3 10^3/uL (1.5-3.5); LYMPHOCYTES % (AUTO) 7.5 %; MEAN CORPUSCULAR HEMOGLOBIN 30.1 pg (27.0-31.0); MEAN CORPUSCULAR HGB CONC 33.5 g/dL (32.0-36.0); MEAN PLATELET VOLUME 8.2 fL (7.4-11.4); MONOCYTES # (AUTO) 0.4 10^3/uL (0.0-1.0); MONOCYTES % (AUTO) 11.3 %; NEUTROPHILS # (AUTO) 2.9 10^3/uL (1.5-6.6); NEUTROPHILS % (AUTO) 79.5 %; PLT - PLATELET COUNT 210 10^3/uL (130-450); RED BLOOD COUNT 5.13 10^6/uL (4.70-6.10); RED CELL DISTRIBUTION WIDTH 13.2 % (12.0-15.0); WHITE BLOOD COUNT 3.6 x10^3/uL (4.8-10.8)
[2018-10-21 11:27] LABS: PLATELET MORPHOLOGY RARE GIANT PLATELETS (NORMAL)
== END 2018-10-21 07:39 | disposition home or self-care (01) ==
LOC: LAB.F 07:38
PROVIDERS: ATTEND Internal Medicine Nephrology
DX: N05.9 Unspecified nephritic syndrome with unspecified morphologic changes (principal); D70.9 Neutropenia, unspecified; D63.1 Anemia in chronic kidney disease
CPT/HCPCS: 36415; 80048; 80197; 85025

== ENCOUNTER 2018-11-04 08:14 | Outpatient (CLI) | payer OTHER ==
[2018-11-04 10:43] LABS: BASOPHILS % (AUTO) 0.7 %; EOSINOPHILS % (AUTO) 1.4 %; HGB - HEMOGLOBIN 15.8 g/dL (14.0-18.0); LYMPHOCYTES # (AUTO) 0.2 10^3/uL (1.5-3.5); LYMPHOCYTES % (AUTO) 7.8 %; MEAN CORPUSCULAR HEMOGLOBIN 30.2 pg (27.0-31.0); MEAN CORPUSCULAR HGB CONC 33.8 g/dL (32.0-36.0); MEAN CORPUSCULAR VOLUME 89.4 fL (80.0-94.0); MEAN PLATELET VOLUME 7.7 fL (7.4-11.4); MONOCYTES # (AUTO) 0.4 10^3/uL (0.0-1.0); MONOCYTES % (AUTO) 12.9 %; NEUTROPHILS # (AUTO) 2.4 10^3/uL (1.5-6.6); NEUTROPHILS % (AUTO) 77.2 %; PLT - PLATELET COUNT 210 10^3/uL (130-450); RED BLOOD COUNT 5.23 10^6/uL (4.70-6.10); RED CELL DISTRIBUTION WIDTH 13.5 % (12.0-15.0); WHITE BLOOD COUNT 3.2 x10^3/uL (4.8-10.8)
[2018-11-04 10:44] LABS: CREATININE 1.6 mg/dL (0.6-1.2)
[2018-11-04 11:25] LABS: PLATELET ESTIMATE, MANUAL NORMAL (130-450,000) (NORMAL); RBC MORPHOLOGY (MULTIPLE) NORMAL APPEARANCE (NORMAL)
[2018-11-04 11:26] LABS: PLATELET MORPHOLOGY NORMAL APP (NORMAL)
[2018-11-04 12:12] LABS: DIFFERENTIAL COMMENT MANUAL=AUTO DIFF
== END 2018-11-04 08:15 | disposition home or self-care (01) ==
LOC: LAB.F 08:14
PROVIDERS: ATTEND Internal Medicine Nephrology
DX: N05.9 Unspecified nephritic syndrome with unspecified morphologic changes (principal); D70.9 Neutropenia, unspecified; D63.1 Anemia in chronic kidney disease
CPT/HCPCS: 36415; 80048; 80197; 85025

== ENCOUNTER 2018-11-14 07:08 | Outpatient (CLI) | payer OTHER | END 2018-11-14 07:09 | disposition home or self-care (01) | LOC: LAB.F 07:08 | PROVIDERS: ATTEND Internal Medicine Nephrology | DX: T86.10 Unspecified complication of kidney transplant (principal) | CPT/HCPCS: 36415; 80197 ==

== ENCOUNTER 2018-11-28 07:10 | Outpatient (CLI) | payer OTHER ==
[2018-11-28 14:02] LABS: BASOPHILS % (AUTO) 0.6 %; EOSINOPHILS % (AUTO) 1.5 %; HGB - HEMOGLOBIN 16.1 g/dL (14.0-18.0); LYMPHOCYTES % (AUTO) 7.6 %; MEAN CORPUSCULAR HEMOGLOBIN 29.7 pg (27.0-31.0); MEAN CORPUSCULAR HGB CONC 33.9 g/dL (32.0-36.0); MEAN CORPUSCULAR VOLUME 87.6 fL (80.0-94.0); MEAN PLATELET VOLUME 7.7 fL (7.4-11.4); MONOCYTES % (AUTO) 16.3 %; PLT - PLATELET COUNT 211 10^3/uL (130-450); RED BLOOD COUNT 5.41 10^6/uL (4.70-6.10); RED CELL DISTRIBUTION WIDTH 13.5 % (12.0-15.0); WHITE BLOOD COUNT 4.7 x10^3/uL (4.8-10.8)
[2018-11-28 14:03] LABS: ABNORMAL LYMPHS % (MANUAL) 0 %; BAND NEUTROPHILS % (MANUAL) 0 %
[2018-11-28 14:27] LABS: BASOPHILS % (MANUAL) 1 %; EOSINOPHILS # (MANUAL) 0.1 10^3/uL (0-0.7); LYMPHOCYTES # (MANUAL) 0.4 10^3/uL (1.5-3.5); LYMPHOCYTES % (MANUAL) 2 %; MONOCYTES # (MANUAL) 0.8 10^3/uL (0.0-1.0); NEUTROPHILS # (MANUAL) 3.4 10^3/uL (1.5-6.6); NEUTROPHILS % (MANUAL) 73 %
[2018-11-28 14:30] LABS: DIFFERENTIAL COMMENT MANUAL DIFFERENTIAL
[2018-11-28 16:09] LABS: BILIRUBIN,URINE NEGATIVE (NEGATIVE); GLUCOSE, URINE (UA) NEGATIVE (NEGATIVE); KETONES,URINE (UA) NEGATIVE (NEGATIVE); LEUKOCYTE ESTERASE, URINE NEGATIVE (NEGATIVE); NITRITE,URINE NEGATIVE (NEGATIVE); OCCULT BLOOD,URINE TRACE-INTA (NEGATIVE); PH,URINE 6.5 PH (5.0-7.5); PROTEIN,URINE NEGATIVE (NEGATIVE); UROBILINOGEN,URINE 0.2 (NORMAL) E.U./dL (NORMAL)
[2018-11-28 16:19] LABS: CLARITY,URINE CLEAR (CLEAR)
[2018-11-28 17:17] LABS: CREATININE 1.5 mg/dL (0.6-1.2); MAGNESIUM 2.1 mg/dL (1.7-2.8); PHOSPHORUS 3.3 mg/dL (2.5-4.6)
[2018-11-28 17:24] LABS: CREATININE,URINE 33.7 mg/dL
[2018-11-28 17:57] LABS: TOTAL PROTEIN,URINE TIMED < 6 mg/dL
== END 2018-11-28 07:11 | disposition home or self-care (01) ==
LOC: LAB.F 07:10
PROVIDERS: ATTEND Nurse Practitioner Acute Care
DX: T86.10 Unspecified complication of kidney transplant (principal); Z51.81 Encounter for therapeutic drug level monitoring
CPT/HCPCS: 36415; 80048; 80197; 81001; 81003; 82570; 83735; 84100; 84156; 85025; 87086

== ENCOUNTER 2018-12-19 07:26 | Outpatient (CLI) | payer OTHER ==
[2018-12-19 10:42] LABS: BASOPHILS # (AUTO) 0.1 10^3/uL (0.0-0.1); BASOPHILS % (AUTO) 1.3 %; EOSINOPHILS # (AUTO) 0.1 10^3/uL (0.0-0.7); EOSINOPHILS % (AUTO) 2.1 %; HGB - HEMOGLOBIN 16.3 g/dL (14.0-18.0); LYMPHOCYTES # (AUTO) 0.3 10^3/uL (1.5-3.5); LYMPHOCYTES % (AUTO) 6.3 %; MEAN CORPUSCULAR HEMOGLOBIN 29.1 pg (27.0-31.0); MEAN CORPUSCULAR HGB CONC 34.7 g/dL (32.0-36.0); MEAN CORPUSCULAR VOLUME 83.9 fL (80.0-94.0); MEAN PLATELET VOLUME 7.6 fL (7.4-11.4); MONOCYTES # (AUTO) 0.3 10^3/uL (0.0-1.0); MONOCYTES % (AUTO) 5.2 %; NEUTROPHILS # (AUTO) 4.3 10^3/uL (1.5-6.6); NEUTROPHILS % (AUTO) 85.1 %; PLT - PLATELET COUNT 214 10^3/uL (130-450); RED BLOOD COUNT 5.61 10^6/uL (4.70-6.10); RED CELL DISTRIBUTION WIDTH 13.5 % (12.0-15.0); WHITE BLOOD COUNT 5.1 x10^3/uL (4.8-10.8)
[2018-12-19 10:55] LABS: CALCIUM 9.1 mg/dL (8.5-10.3); CREATININE 1.5 mg/dL (0.6-1.2)
== END 2018-12-19 07:27 | disposition home or self-care (01) ==
LOC: LAB.F 07:26
PROVIDERS: ATTEND Internal Medicine Nephrology
DX: N05.9 Unspecified nephritic syndrome with unspecified morphologic changes (principal); D70.9 Neutropenia, unspecified; D63.1 Anemia in chronic kidney disease
CPT/HCPCS: 36415; 80048; 80197; 85025

== ENCOUNTER 2019-01-17 07:09 | Outpatient (CLI) | payer OTHER ==
[2019-01-17 11:09] LABS: BASOPHILS % (AUTO) 0.6 %; HGB - HEMOGLOBIN 15.9 g/dL (14.0-18.0); LYMPHOCYTES # (AUTO) 0.3 10^3/uL (1.5-3.5); LYMPHOCYTES % (AUTO) 7.2 %; MEAN PLATELET VOLUME 8.1 fL (7.4-11.4); MONOCYTES # (AUTO) 0.5 10^3/uL (0.0-1.0); MONOCYTES % (AUTO) 12.6 %; NEUTROPHILS # (AUTO) 3.3 10^3/uL (1.5-6.6); NEUTROPHILS % (AUTO) 78.6 %; PLT - PLATELET COUNT 200 10^3/uL (130-450); RED BLOOD COUNT 5.48 10^6/uL (4.70-6.10); RED CELL DISTRIBUTION WIDTH 14.1 % (12.0-15.0); WHITE BLOOD COUNT 4.2 x10^3/uL (4.8-10.8)
[2019-01-17 11:16] LABS: BILIRUBIN,URINE NEGATIVE (NEGATIVE); GLUCOSE, URINE (UA) NEGATIVE (NEGATIVE); KETONES,URINE (UA) NEGATIVE (NEGATIVE); LEUKOCYTE ESTERASE, URINE NEGATIVE (NEGATIVE); NITRITE,URINE NEGATIVE (NEGATIVE); OCCULT BLOOD,URINE TRACE-INTA (NEGATIVE); PH,URINE 6.5 PH (5.0-7.5); PROTEIN,URINE NEGATIVE (NEGATIVE); UROBILINOGEN,URINE 0.2 (NORMAL) E.U./dL (NORMAL)
[2019-01-17 11:18] LABS: CREATININE 1.4 mg/dL (0.6-1.2); MAGNESIUM 1.9 mg/dL (1.7-2.8); PHOSPHORUS 2.9 mg/dL (2.5-4.6)
[2019-01-17 11:22] LABS: CLARITY,URINE CLEAR (CLEAR)
[2019-01-17 11:53] LABS: CREATININE,URINE 45.4 mg/dL; TOTAL PROTEIN,URINE TIMED < 6 mg/dL
[2019-01-17 14:01] LABS: CALCIUM 9.3 mg/dL (8.5-10.3)
== END 2019-01-17 07:10 | disposition home or self-care (01) ==
LOC: LAB.F 07:09
PROVIDERS: ATTEND Nurse Practitioner Acute Care
DX: T86.10 Unspecified complication of kidney transplant (principal); Z94.0 Kidney transplant status; Z51.81 Encounter for therapeutic drug level monitoring
CPT/HCPCS: 36415; 80048; 80197; 81001; 81003; 82570; 83735; 84100; 84156; 85025; 87086

== ENCOUNTER 2019-02-25 07:29 | Outpatient (CLI) | payer OTHER ==
[2019-02-25 12:12] LABS: BILIRUBIN,URINE NEGATIVE (NEGATIVE); GLUCOSE, URINE (UA) NEGATIVE (NEGATIVE); KETONES,URINE (UA) NEGATIVE (NEGATIVE); LEUKOCYTE ESTERASE, URINE NEGATIVE (NEGATIVE); NITRITE,URINE NEGATIVE (NEGATIVE); OCCULT BLOOD,URINE NEGATIVE (NEGATIVE); PH,URINE 6.5 PH (5.0-7.5); PROTEIN,URINE NEGATIVE (NEGATIVE); UROBILINOGEN,URINE 0.2 (NORMAL) E.U./dL (NORMAL)
[2019-02-25 12:20] LABS: CREATININE 1.4 mg/dL (0.6-1.2); MAGNESIUM 1.9 mg/dL (1.7-2.8); PHOSPHORUS 3.6 mg/dL (2.5-4.6)
[2019-02-25 12:30] LABS: CREATININE,URINE 22.6 mg/dL
[2019-02-25 12:31] LABS: BACTERIA,URINE None Seen /HPF (None Seen); CLARITY,URINE CLEAR (CLEAR); RBC,URINE None Seen /HPF (0-5); SQUAMOUS EPITHELIAL CELL,UR NONE SEEN (<= Few)
[2019-02-25 12:48] LABS: TOTAL PROTEIN,URINE TIMED < 6 mg/dL
[2019-02-25 12:56] LABS: BASOPHILS % (AUTO) 0.6 %; EOSINOPHILS # (AUTO) 0.1 10^3/uL (0.0-0.7); EOSINOPHILS % (AUTO) 1.3 %; HGB - HEMOGLOBIN 15.7 g/dL (14.0-18.0); LYMPHOCYTES # (AUTO) 0.4 10^3/uL (1.5-3.5); LYMPHOCYTES % (AUTO) 9.4 %; MEAN CORPUSCULAR HEMOGLOBIN 28.6 pg (27.0-31.0); MEAN CORPUSCULAR HGB CONC 32.7 g/dL (32.0-36.0); MEAN CORPUSCULAR VOLUME 87.4 fL (80.0-94.0); MEAN PLATELET VOLUME 8.2 fL (7.4-11.4); MONOCYTES # (AUTO) 0.5 10^3/uL (0.0-1.0); MONOCYTES % (AUTO) 12.5 %; NEUTROPHILS % (AUTO) 76.2 %; PLT - PLATELET COUNT 195 10^3/uL (130-450); RED BLOOD COUNT 5.48 10^6/uL (4.70-6.10); WHITE BLOOD COUNT 3.9 x10^3/uL (4.8-10.8)
== END 2019-02-25 07:30 | disposition home or self-care (01) ==
LOC: LAB.F 07:29
DX: Z94.0 Kidney transplant status (principal); Z51.81 Encounter for therapeutic drug level monitoring; T86.10 Unspecified complication of kidney transplant
CPT/HCPCS: 36415; 80048; 80197; 81001; 82570; 83735; 84100; 84156; 85025; 87086

== ENCOUNTER 2019-03-27 08:57 | Outpatient (CLI) | payer OTHER ==
[2019-03-27 17:38] LABS: BASOPHILS % (AUTO) 0.9 %; HGB - HEMOGLOBIN 14.1 g/dL (14.0-18.0); LYMPHOCYTES # (AUTO) 0.4 10^3/uL (1.5-3.5); LYMPHOCYTES % (AUTO) 9.5 %; MEAN CORPUSCULAR HEMOGLOBIN 28.3 pg (27.0-31.0); MEAN CORPUSCULAR HGB CONC 32.8 g/dL (32.0-36.0); MEAN CORPUSCULAR VOLUME 86.5 fL (80.0-94.0); MEAN PLATELET VOLUME 8.1 fL (7.4-11.4); MONOCYTES # (AUTO) 0.4 10^3/uL (0.0-1.0); MONOCYTES % (AUTO) 11.2 %; NEUTROPHILS # (AUTO) 3.1 10^3/uL (1.5-6.6); NEUTROPHILS % (AUTO) 77.4 %; PLT - PLATELET COUNT 212 10^3/uL (130-450); RED BLOOD COUNT 4.98 10^6/uL (4.70-6.10); RED CELL DISTRIBUTION WIDTH 13.3 % (12.0-15.0)
[2019-03-27 17:51] LABS: BILIRUBIN,URINE NEGATIVE (NEGATIVE); GLUCOSE, URINE (UA) NEGATIVE (NEGATIVE); KETONES,URINE (UA) NEGATIVE (NEGATIVE); LEUKOCYTE ESTERASE, URINE NEGATIVE (NEGATIVE); NITRITE,URINE NEGATIVE (NEGATIVE); OCCULT BLOOD,URINE NEGATIVE (NEGATIVE); PH,URINE 6.5 PH (5.0-7.5); PROTEIN,URINE NEGATIVE (NEGATIVE); UROBILINOGEN,URINE 0.2 (NORMAL) E.U./dL (NORMAL)
[2019-03-27 18:04] LABS: CALCIUM 8.9 mg/dL (8.5-10.3); CREATININE 1.4 mg/dL (0.6-1.2); MAGNESIUM 2.2 mg/dL (1.7-2.8); PHOSPHORUS 3.4 mg/dL (2.5-4.6)
[2019-03-27 18:06] LABS: CLARITY,URINE CLEAR (CLEAR)
[2019-03-27 18:15] LABS: CREATININE,URINE 27.4 mg/dL
[2019-03-27 18:16] LABS: TOTAL PROTEIN,URINE TIMED < 6 mg/dL
== END 2019-03-27 08:58 | disposition home or self-care (01) ==
LOC: LAB.F 08:57
PROVIDERS: ATTEND Internal Medicine Nephrology
DX: Z94.0 Kidney transplant status (principal); Z51.81 Encounter for therapeutic drug level monitoring
CPT/HCPCS: 36415; 80048; 80197; 81001; 81003; 82306; 82570; 83735; 83970; 84100; 84156; 85025; 87086

== ENCOUNTER 2019-05-01 07:20 | Outpatient (CLI) | payer OTHER ==
[2019-05-01 10:35] LABS: CALCIUM 9.4 mg/dL (8.5-10.3); CREATININE 1.3 mg/dL (0.6-1.2); PHOSPHORUS 3.6 mg/dL (2.5-4.6)
[2019-05-01 10:43] LABS: BASOPHILS % (AUTO) 0.7 %; EOSINOPHILS # (AUTO) 0.1 10^3/uL (0.0-0.7); EOSINOPHILS % (AUTO) 1.2 %; HGB - HEMOGLOBIN 12.8 g/dL (14.0-18.0); LYMPHOCYTES # (AUTO) 0.4 10^3/uL (1.5-3.5); LYMPHOCYTES % (AUTO) 9.7 %; MEAN CORPUSCULAR HGB CONC 32.5 g/dL (32.0-36.0); MEAN CORPUSCULAR VOLUME 89.3 fL (80.0-94.0); MEAN PLATELET VOLUME 10.2 fL (7.4-11.4); MONOCYTES # (AUTO) 0.5 10^3/uL (0.0-1.0); MONOCYTES % (AUTO) 11.5 %; NEUTROPHILS # (AUTO) 3.3 10^3/uL (1.5-6.6); NEUTROPHILS % (AUTO) 75.3 %; PLT - PLATELET COUNT 261 10^3/uL (130-450); RED BLOOD COUNT 4.41 10^6/uL (4.70-6.10); RED CELL DISTRIBUTION WIDTH 13.8 % (12.0-15.0); WHITE BLOOD COUNT 4.3 x10^3/uL (4.8-10.8)
[2019-05-01 11:00] LABS: TOTAL PROTEIN,URINE TIMED < 6 mg/dL
[2019-05-01 11:13] LABS: BILIRUBIN,URINE NEGATIVE (NEGATIVE); GLUCOSE, URINE (UA) NEGATIVE (NEGATIVE); KETONES,URINE (UA) NEGATIVE (NEGATIVE); LEUKOCYTE ESTERASE, URINE NEGATIVE (NEGATIVE); NITRITE,URINE NEGATIVE (NEGATIVE); OCCULT BLOOD,URINE NEGATIVE (NEGATIVE); PH,URINE 6.5 PH (5.0-7.5); PROTEIN,URINE NEGATIVE (NEGATIVE); UROBILINOGEN,URINE 0.2 (NORMAL) E.U./dL (NORMAL)
[2019-05-01 11:16] LABS: CLARITY,URINE CLEAR (CLEAR)
[2019-05-01 11:17] LABS: BACTERIA,URINE None Seen /HPF (None Seen); RBC,URINE None Seen /HPF (0-5); SQUAMOUS EPITHELIAL CELL,UR NONE SEEN (<= Few)
== END 2019-05-01 07:21 | disposition home or self-care (01) ==
LOC: LAB.F 07:20
PROVIDERS: ATTEND Internal Medicine Nephrology
DX: Z51.81 Encounter for therapeutic drug level monitoring (principal); T86.10 Unspecified complication of kidney transplant
CPT/HCPCS: 36415; 80048; 80197; 81001; 82570; 83735; 84100; 84156; 85025; 87086